=== PATIENT | female | born 1965 | race Caucasian/White ===

== ENCOUNTER 2021-12-04 07:54 | Emergency (ER) | payer BC ==
[2021-12-04] MEDS ORDERED: Sodium Chloride 0.9% 10 ML Syringe FLUSH PRN ×2 (09:29→10:06)
[2021-12-04] MEDS ORDERED: Sodium Chloride 0.9% 1,000 ML IV STA (09:29)
[2021-12-04] MEDS ORDERED: Iopamidol 612 MG/ML 100 ML Bottle IV PRN (10:06)
[2021-12-04 10:08] LABS: ESTIMATED GFR 76 mL/min (>60); TROPONIN I HIGH SENSITIVITY 38.1 pg/mL (<=60.3)
[2021-12-04] MEDS ORDERED: Sodium Chloride 0.9% 75 ML IV SCH (10:15)
== END 2021-12-04 11:46 | disposition home or self-care (01) ==
LOC: JP.ED 07:54
DX: K80.20 Calculus of gallbladder without cholecystitis without obstruction (principal); Z79.899 Other long term (current) drug therapy
CPT/HCPCS: 36415; 74177; 74177-26; 80053; 81001; 83605; 83690; 84484; 85025; 96360; 96361; 99284; 99284-25; J3490; J7030; Q9967